=== PATIENT | female | born 1940 | race Caucasian/White ===

== ENCOUNTER → 2024-06-18 12:38 | Outpatient (REF) | payer MEDICARE, OTHER, SELFPAY | LOC: RAD 12:38 | PROVIDERS: ATTENDING PHYSICIAN Internal Medicine Rheumatology; FAMILY PHYSICIAN Family Medicine | DX: M81.0 Age-related osteoporosis without current pathological fracture (principal) | CPT/HCPCS: 77080 ==

== ENCOUNTER 2025-05-04 11:07 | Emergency (ER) | payer MEDICARE, OTHER, SELFPAY ==
[2025-05-04 11:12] VITALS: BP 136/76; BMI 20.5
[2025-05-04 12:23] LABS: Hematocrit 39.1 % (37.0-47.0); Hemoglobin 13.3 g/dL (12.0-16.0); Mean Corp Hgb Conc. 34.0 g/dL (33.0-37.0); Mean Corpuscular Volume 93.3 fL (81.0-99.0); Nucleated Red Blood Cells % 0 %; Platelet Count 262 10^3/uL (130-400); Red Cell Dist. Width 13.2 % (11.5-14.5)
[2025-05-04 12:41] LABS: Urine Character Clear (Clear)
[2025-05-04 12:47] LABS: ALT (SGPT) 13 U/L (0-35); AST (SGOT) 21 U/L (14-36); Albumin 3.9 g/dl (3.5-5.0); Alkaline Phosphatase 75 U/L (38-126); Blood Urea Nitrogen 9 mg/dl (7-17); Calcium 9.9 mg/dl (8.4-10.2); Carbon Dioxide 25 mmol/L (22-30); Chloride 106 mmol/L (98-107); Estimated Creatinine Clearance 42 ml/min; Glucose 98 mg/dl (70-99); Potassium 4.3 mmol/L (3.5-5.1); Sodium 138 mmol/L (135-145); Total Protein 6.6 g/dl (6.3-8.2); eGFR > 60.00
--- NOTE | 2025-05-04 14:41 | ED.GENMED ---
History of Present Illness
General
Chief Complaint: Abdominal Pain
Source: patient
Exam Limitations: none
Time Seen by Provider: 05/04/25 13:14
Nursing documentation reviewed up to this point in time: agreed with
History of Present Illness
History of Present Illness:
see MDM
Past History
Past History
ED Past Medical History: Other (Rheumatoid arthritis, IBS, osteoporosis, ovarian cyst)
ED Past Surgical History: Cholecystectomy and Tonsilectomy
Social History
Tobacco: Non-smoker
Alcohol: None
Drug: None
Personal:
Living: with family
Employment: Retired
Family History
Family History: Other (noncontributory)
Review of Systems
Review of Systems
Allergies reviewed?: Yes
All Other Systems: Not applicable
Phy Exam
Physical Exam
Physical Exam:
GENERAL: Alert , in no apparent distress
EYE: pupils equal and reactive
NECK: Supple
ENT: o/p clr, mmm.
CARDIAC: Regular rate and rhythm .
LUNGS: Clear breath sounds bilaterally, no acute respiratory distress, no wheezes/rales/rhonchi
ABDOMEN: Soft, mild lower abd tenderness, no r/g, no cvat, normal bowel sounds
NEUROLOGICAL: Alert and oriented, no focal neuro deficits
SKIN: Warm and dry, abrasion with eschar LLE
mild swelling to LLE
MUSCULOSKELETAL: mild swelling LLE
PSYCH: Normal and appropriate interaction.
Course
Orders/Labs/Results
Orders:
Orders
05/04/25 12:04
Complete Blood Count/With Diff Urgent
Comprehensive Metabolic Panel Urgent
Urinalysis Reflex To Culture Urgent
Date Specimen was Collected: 05/04/25
Time Specimen was Collected: 12:04
Urine Microscopic Reflex Cult Urgent
Urine Culture Urgent
REBEKAH Source: U
Specimen Description:
Date Specimen was Collected: 05/04/25
Time Specimen was Collected: 12:04
05/04/25 13:29
CT Abd/Pel (IV only)-DH only Urgent
Comment:
Reason For Exam: lower abd pain, uti
05/04/25 15:00
Venous Doppler Lwr Ext Left [US Periph Venous LOWER Ext LT] Urgent
Comment:
Reason For Exam: left leg swelling
05/04/25 17:14
Cefdinir [Omnicef] 300 mg PO NOW STA
Abnormal Lab Results
05/04/25
12:04
RBC 4.19 L 10^6/uL
(4.20-5.40)
MCH 31.7 H pg
(27.0-31.0)
Abs Immat Gran (auto) 0.1 H 10^3/uL
(0-0.05)
Absolute Neuts (auto) 8.5 H 10^3/uL
(1.4-6.5)
Absolute Lymphs (auto) 0.8 L 10^3/uL
(1.2-3.4)
Absolute Monos (auto) 0.8 H 10^3/uL
(0.1-0.6)
Immature Gran % 0.6 H %
(0-0.5)
Neutrophils % 82.5 H %
(42.2-75.2)
Lymphocytes % 8.0 L %
(20.5-51.1)
Ur Occult Blood Reflex 1+ A
(Negative)
Leukocyte Esterase Rfl 2+ A
(Negative)
Urine RBC 3-6 A /HPF
(0-2)
Urine Albumin (Reflex) 1+ A
(Neg - Trace)
05/04/25 12:04
05/04/25 12:04
Vital Signs
Initial and Last Documented VS:
Initial Vital Signs
Temp Pulse Resp BP Pulse Ox
36.6 C 84 18 136/76 96
05/04/25 11:12 05/04/25 11:12 05/04/25 11:12 05/04/25 11:12 05/04/25 11:12
Last Documented Vital Signs
Temp Pulse Resp BP Pulse Ox
36.6 C 74 18 138/89 95
05/04/25 11:12 05/04/25 17:09 05/04/25 17:09 05/04/25 17:09 05/04/25 17:09
MDM/Problems Addressed
MDM/Problems Addressed:
Note:
CHIEF COMPLAINT(S)
Lower back pain radiating to lower abdomen, frequent urination, and wound care.
HISTORY OF PRESENT ILLNESS
pt is a 84 y/o F h/o mild dementia
sent from [place] for lower abd pain. pt cannot really recall when this started, initially saying that it started today but i called the RN from [facility] who was able to tell me she has chronic pain in her back but that the lower abd pain has
been there for several months
they wanted to send her for testing but pt would always refuse.
she also had a fall a few weeks ago and has complained more recnetly that her L hip was bothering her so they want her checked for a fracture. but i confirmed that the fall was at [facility] 2-3 weeks ago and not today
she is at her baseline, has some memory issues and gets pretty anxious/overwhlemed being here.
pt reports urinary urgency and frequency today
no dysuria There is no associated fever, vomiting, or diarrhea.
she does have h/o UTI
PAST MEDICAL AND SURGICAL HISTORY
The patient has a wound secondary to a fall occurring weeks ago, for which she has been receiving treatment.
EXTERNAL RECORDS REVIEWED
The patient mentioned that records pertaining to the fall and subsequent treatment are available at the facility where she is receiving wound care.
PHYSICAL EXAM
- Assessment of the left leg wound, with plans to re-dress using the same material.
- No signs of fever or vomiting observed during the encounter.
- Nursing notes reviewed and vital signs reviewed.
PROBLEM LIST
- Acute: Lower back pain with radiation to the abdomen, urinary urgency, wound care.
- Chronic: None mentioned.
PLAN
Further investigation including a scan of the abdomen due to the described abdominal pain and tenderness. The patient should refrain from eating until diagnostic results are reviewed. Additional tests are pending to assess for potential infection.
The leg wound will be re-dressed following outcomes of the urine and abdominal evaluations.
DIFFERENTIAL DIAGNOSIS
The Differential Diagnosis includes, in no particular order and is not limited to:
1. Urinary tract infection
2. Kidney stones
3. Pyelonephritis
4. Musculoskeletal back pain
5. Abdominal aortic aneurysm
6. Diverticulitis
7. Bladder infection
8. Appendicitis
9. Ovarian cyst
10. Pelvic inflammatory disease
CARE-UPDATE
05/04/25 - 17:04
pt presents with intermittent chronic (months) lower abd complaints and someitmes pain down L leg/hip region causing her pain with walking
she has refused eval in the past
she has some dementia and gets agitated with questionning
on exam she is nontender, moving the hips and back normally, literally did a dancing jig to the bathroom
neg straight leg raise
normal sensation
she has some suprapubic tendneress and reports of urinary frequency
her ua is mildly positive, with white blood cells, leukocytes, and a little blood in urine. Additionally, she was found to have a stable left ovarian cyst and a small Bakers cyst behind the knee. The patient has been experiencing abdominal pain
that extends into her leg, heightened since a fall on the fifth, though a CT scan showed no fractures. The belly showed moderate stool in the colon. Swelling in the leg is likely reactive to a healing wound, and the venous insufficiency is suspected
to contribute. The plan is to treat the urinary symptoms with Macrobid (nitrofurantoin) twice a day while monitoring for any side effects. Pain management to include Tylenol and consideration for gabapentin for nerve pain. Further imaging such as
MRI may be suggested for more detailed assessment of potential nerve issues. Discussed the possibility of physical therapy assessment and intervention. Patient or family should contact if symptoms persist or worsen.
*Pulse Oximetry
SaO2: 96
Oxygen Mode of Delivery: Room air
Patient hypoxic: no (95)
*Critical Care Note
Total Time (30-74mins, 75-104mins- exclusive of procedures): Not Applicable
ED Attending Note
-
Portions of this chart may have been created with voice recognition software.� Occasional wrong word or��sound alike� substitutions may have occurred due to the inherent limitations of voice recognition software.
Discharge Plan
Departure
Patient Disposition: Detention/SNF
Date of Disposition: 05/04/25
Time of Disposition: 17:06
Patient with high blood pressure during this ER visit?: No
Condition: Fair
Covid-19: Not Applicable
Discharge Problem:
UTI (urinary tract infection), Chronic hip pain
Instructions: Urinary tract infection in adults - ED (DC), Hip pain - ED (DC)
Prescriptions:
New
nitrofurantoin monohyd/m-cryst [Macrobid] 100 mg capsule
100 mg PO Q12H 7 Days Qty: 14 0RF
cefdinir 300 mg capsule
300 mg PO BID Qty: 10 0RF
No Action
levothyroxine 50 MCG tablet
50 mcg PO DAILY@0600
polyvinyl alcohol [Artificial Tears (polyvin alc)] 1.4 % Drops
1 drp BOTH EYES BID@0900,1700
acetaminophen 500 mg Tablet
1,000 mg PO Q8HPRN PRN (Reason: mild pain)
magnesium hydroxide [Milk of Magnesia] 400 mg/5 mL Suspension
30 ml PO DAILYPRN PRN (Reason: if no bm x 2 days)
polyethylene glycol 3350 [Miralax] 17 gram powder in packet
17 g PO DAILYPRN PRN (Reason: constipation)
cetirizine 10 mg Tablet
10 mg PO DAILY
vitamin A and D Ointment
1 applic TOPICAL DAILY@0800
Rx Instructions:
apply to rle
Aquaphor Ointment
1 applic TOPICAL DAILY@0800
Rx Instructions:
apply to legs
ibuprofen 400 mg Tablet
400 mg PO Q6H PRN (Reason: mild pain)
Anti-Itch (menthol-camphor) 0.5-0.5 % Lotion
1 applic TOPICAL DAILY
Rx Instructions:
apply to rle
Saccharomyces boulardii [Florastor] 250 mg Capsule
250 mg PO BID
cholecalciferol (vitamin D3) 50 mcg (2,000 unit) Tablet
50 mcg PO DAILY
methylprednisolone [Medrol] 4 mg tablet
2 mg PO DAILY
Rx Instructions:
Start taking after off of Prednisone.
Referrals:
Dhruv Perez MD [Family Provider, Family Practice] - Follow up in 2-3 days
Activity Restrictions/Additional Instructions:
Your CAT scan did not show any significant causes for your pain, you do have an ovarian cyst which is stable in size measuring 6 cm and you have moderate amount of stool in your colon. If you easily get constipated try dose of MiraLAX for 1 or 2
days in a row.
You have a urine infection. Take cefdinir twice a day for 5 days.
We will call you if we have to switch the antibiotic.
Try Tylenol 3 times a day, add a lidocaine patch to your hip leave on for 12 hours, remove for 12 hours
Your ultrasound showed no blood clot in your leg.
You may benefit from physical therapy evaluation.
return for any concerns: fever, vomiting, diarrhea, severe pain, inability to walk, or any concerns.
Interventions
Interventions:
*Risk Screen - Suicide Last Done: 05/04/25 11:12
*General Assessment Last Done: 05/04/25 11:12
*Neglect/Abuse Screening Last Done: 05/04/25 11:12
*Nursing Disposition Last Done: 05/04/25 17:35
TP-Vhoqvo-Caakrtonbe Assessment Last Done: 05/04/25 11:47
Discharge Date and Time
Discharge Date/Time: 05/04/25 17:37
Print Language: KHMER
[2025-05-04 15:36] VITALS: BP 125/57
[2025-05-04 17:09] VITALS: BP 138/89
[2025-05-04] MEDS: OMNICEF 300 MG PO (17:28)
== END 2025-05-04 17:37 ==
LOC: EMR 11:07
PROVIDERS: EMERGENCY PHYSICIAN Emergency Medicine; FAMILY PHYSICIAN Family Medicine
DX: N39.0 Urinary tract infection, site not specified (principal); G89.29 Other chronic pain; R22.42 Localized swelling, mass and lump, left lower limb; M06.9 Rheumatoid arthritis, unspecified; M81.0 Age-related osteoporosis without current pathological fracture; Z90.49 Acquired absence of other specified parts of digestive tract
CPT/HCPCS: 99284; 74177; 80053; 81003; 81015; 85025; 87086; 93971; Q9967

== ENCOUNTER 2025-06-29 21:45 | Inpatient (IN) | payer MEDICARE, OTHER, SELFPAY ==
[2025-06-29] VITALS (7 sets, daily range): BP systolic 116–140; BP diastolic 54–94
--- NOTE | 2025-06-29 18:29 | ED.GENMED ---
History of Present Illness
<Alberto Rocha Jr., PA-C - Last Filed: 06/29/25 19:53>
General
Chief Complaint: Urinary Symptoms
Source: patient
Exam Limitations: none
Time Seen by Provider: 06/29/25 18:18
Nursing documentation reviewed up to this point in time: agreed with
History of Present Illness
History of Present Illness:
The patient is an 84-year-old female past medical history of IBS, memory loss presenting to the emergency department today with concerns of worsening symptoms related to recently diagnosed UTI over the past 4 days or so. Has been on Macrobid
without relief.
Past History
<Alberto Rocha Jr., PA-C - Last Filed: 06/29/25 19:53>
Past History
ED Past Medical History: Other (Rheumatoid arthritis, IBS, osteoporosis, ovarian cyst)
ED Past Surgical History: Cholecystectomy and Tonsilectomy
Social History
Tobacco: Non-smoker
Alcohol: None
Drug: None
Personal:
Living: with family
Employment: Retired
Family History
Family History: Other (noncontributory)
Review of Systems
<Alberto Rocha Jr., PA-C - Last Filed: 06/29/25 19:53>
Review of Systems
Allergies reviewed?: Yes
All Other Systems: ROS reviewed and negative except as documented in HPI and ROS
Phy Exam
<Alberto Rocha Jr., PA-C - Last Filed: 06/29/25 19:53>
Physical Exam
Physical Exam:
GENERAL: Alert , in no apparent distress
EYE: pupils equal and reactive
NECK: Supple, no significant adenopathy.
ENT: o/p clr, mmm.
CARDIAC: Regular rate and rhythm .
LUNGS: Clear breath sounds bilaterally, no acute respiratory distress, no wheezes/rales/rhonchi
ABDOMEN: Soft, without focal tenderness, no r/g, no cvat
NEUROLOGICAL: Alert and oriented, no focal neuro deficits
SKIN: Warm and dry, skin intact.
MUSCULOSKELETAL: No edema, well perfused.
PSYCH: Normal and appropriate interaction.
Course
<Alberto Rocha Jr., BRIEN-Sarah - Last Filed: 06/29/25 19:53>
Orders/Labs/Results
Orders:
Orders
06/29/25 18:51
Basic Metabolic Panel Urgent
CBC/With Diff [Complete Blood Count/With Diff] Urgent
Lactic Acid Urgent
Urinalysis Reflex To Culture Urgent
Date Specimen was Collected: 06/29/25
Time Specimen was Collected: 18:39
Urine Microscopic Reflex Cult Urgent
Urine Culture Urgent
REBEKAH Source: U
Specimen Description:
Date Specimen was Collected: 06/29/25
Time Specimen was Collected: 18:39
06/29/25 19:49
CefTRIAXone [Rocephin] 1,000 mg IV NOW STA
Abnormal Lab Results
06/29/25
18:51
WBC 12.5 H 10^3/uL
(4.8-10.8)
RBC 4.10 L 10^6/uL
(4.20-5.40)
Abs Immat Gran (auto) 0.1 H 10^3/uL
(0-0.05)
Absolute Neuts (auto) 10.6 H 10^3/uL
(1.4-6.5)
Absolute Lymphs (auto) 0.7 L 10^3/uL
(1.2-3.4)
Absolute Monos (auto) 1.0 H 10^3/uL
(0.1-0.6)
Immature Gran % 0.6 H %
(0-0.5)
Neutrophils % 85.2 H %
(42.2-75.2)
Lymphocytes % 5.3 L %
(20.5-51.1)
Carbon Dioxide 18 L mmol/L
(22-30)
BUN 25 H mg/dl
(7-17)
Glucose 102 H mg/dl
(70-99)
Urine Ketones 3+ A
(Negative)
Ur Occult Blood Reflex 4+ A
(Negative)
Urine Nitrite (Reflex) Positive A
(Negative)
Leukocyte Esterase Rfl 3+ A
(Negative)
Urine WBC (Reflex) >100 A /HPF
(0-5)
Urine Albumin (Reflex) 4+ A
(Neg - Trace)
06/29/25 18:51
06/29/25 18:51
Vital Signs
Initial and Last Documented VS:
Initial Vital Signs
Temp Pulse Resp BP Pulse Ox
98.0 F 88 20 135/74 94
06/29/25 18:19 06/29/25 18:19 06/29/25 18:19 06/29/25 18:19 06/29/25 18:19
Last Documented Vital Signs
Temp Pulse Resp BP Pulse Ox
98.0 F 88 20 135/74 94
06/29/25 18:19 06/29/25 18:19 06/29/25 18:19 06/29/25 18:19 06/29/25 18:19
<Estevan Butler, DO - Last Filed: 06/29/25 19:52>
Orders/Labs/Results
Orders:
Orders
06/29/25 18:51
Basic Metabolic Panel Urgent
CBC/With Diff [Complete Blood Count/With Diff] Urgent
Lactic Acid Urgent
Urinalysis Reflex To Culture Urgent
Date Specimen was Collected: 06/29/25
Time Specimen was Collected: 18:39
Urine Microscopic Reflex Cult Urgent
Urine Culture Urgent
REBEKAH Source: U
Specimen Description:
Date Specimen was Collected: 06/29/25
Time Specimen was Collected: 18:39
06/29/25 19:49
CefTRIAXone [Rocephin] 1,000 mg IV NOW STA
Abnormal Lab Results
06/29/25
18:51
WBC 12.5 H 10^3/uL
(4.8-10.8)
RBC 4.10 L 10^6/uL
(4.20-5.40)
Abs Immat Gran (auto) 0.1 H 10^3/uL
(0-0.05)
Absolute Neuts (auto) 10.6 H 10^3/uL
(1.4-6.5)
Absolute Lymphs (auto) 0.7 L 10^3/uL
(1.2-3.4)
Absolute Monos (auto) 1.0 H 10^3/uL
(0.1-0.6)
Immature Gran % 0.6 H %
(0-0.5)
Neutrophils % 85.2 H %
(42.2-75.2)
Lymphocytes % 5.3 L %
(20.5-51.1)
Carbon Dioxide 18 L mmol/L
(22-30)
BUN 25 H mg/dl
(7-17)
Glucose 102 H mg/dl
(70-99)
Urine Ketones 3+ A
(Negative)
Ur Occult Blood Reflex 4+ A
(Negative)
Urine Nitrite (Reflex) Positive A
(Negative)
Leukocyte Esterase Rfl 3+ A
(Negative)
Urine WBC (Reflex) >100 A /HPF
(0-5)
Urine Albumin (Reflex) 4+ A
(Neg - Trace)
06/29/25 18:51
06/29/25 18:51
Vital Signs
Initial and Last Documented VS:
Initial Vital Signs
Temp Pulse Resp BP Pulse Ox
98.0 F 88 20 135/74 94
06/29/25 18:19 06/29/25 18:19 06/29/25 18:19 06/29/25 18:19 06/29/25 18:19
Last Documented Vital Signs
Temp Pulse Resp BP Pulse Ox
98.0 F 88 20 135/74 94
06/29/25 18:19 06/29/25 18:19 06/29/25 18:19 06/29/25 18:19 06/29/25 18:19
<Alberto Rocha Jr., PA-C - Last Filed: 06/29/25 19:53>
MDM/Problems Addressed
MDM/Problems Addressed:
84-year-old female presenting with concerns of ongoing urinary symptoms that were not improving over the last few days while taking Macrobid for apparent UTI. Here vital signs are normal patient no obvious distress but is somewhat confused. Family
confirming this is worsened from baseline. White count 12.5 normal lactic acid elevated BUN to creatinine ratio. She was started on fluids also started on ceftriaxone as urine appears consistent with urinary tract infection. Plan to admit
considering failed outpatient management as well as altered mental status in association with acute urinary tract infection.
<Alberto Rocha Jr., PA-C - Last Filed: 06/29/25 19:53>
*Pulse Oximetry
Patient hypoxic: no (94)
*Critical Care Note
Total Time (30-74mins, 75-104mins- exclusive of procedures): Not Applicable
ED Attending Note
<Alberto Rocha Jr., PA-C - Last Filed: 06/29/25 19:53>
-
Portions of this chart may have been created with voice recognition software.� Occasional wrong word or��sound alike� substitutions may have occurred due to the inherent limitations of voice recognition software.
<Estevan Butler DO - Last Filed: 06/29/25 19:52>
ED Attending Note
Patient seen and examined by attending physician: Yes
ED Attending Note:
I have reviewed and agree with history treatment plan by Gus Rocha PA-C. My exam revealed 84-year-old female with mild confusion otherwise no acute distress. Patient failing outpatient treatment for UTI that is likely causing some of her symptoms
such as confusion. Treat with Rocephin admit to hospitalist.
Discharge Plan
Departure
Patient Disposition: Admit
Date of Disposition: 06/29/25
Time of Disposition: 19:53
Admit to: Med/Surg
Admit to doctor: Adriano
Presentation/result/management discussed w/ accepting MD/DO: Hospitalist
Patient with high blood pressure during this ER visit?: No
Condition: Good
Covid-19: Not Applicable
Discharge Problem:
Acute UTI
Prescriptions:
No Action
levothyroxine 50 MCG tablet
50 mcg PO DAILY@0600
polyvinyl alcohol [Artificial Tears (polyvin alc)] 1.4 % Drops
1 drp BOTH EYES BID@0900,1700
acetaminophen 500 mg Tablet
1,000 mg PO Q8HPRN PRN (Reason: mild pain)
magnesium hydroxide [Milk of Magnesia] 400 mg/5 mL Suspension
30 ml PO DAILYPRN PRN (Reason: if no bm x 2 days)
polyethylene glycol 3350 [Miralax] 17 gram powder in packet
17 g PO DAILYPRN PRN (Reason: constipation)
cetirizine 10 mg Tablet
10 mg PO DAILY
Aquaphor Ointment
1 applic TOPICAL DAILY@0800
Rx Instructions:
apply to legs
ibuprofen 400 mg Tablet
400 mg PO Q6H PRN (Reason: mild pain)
Saccharomyces boulardii [Florastor] 250 mg Capsule
250 mg PO BID
cholecalciferol (vitamin D3) 50 mcg (2,000 unit) Tablet
50 mcg PO DAILY
methylprednisolone [Medrol] 4 mg tablet
2 mg PO DAILY
fluconazole 200 mg tablet
200 mg PO DAILY
Rx Instructions:
beginning 06/28/25 and ending 07/01/25
nitrofurantoin monohyd/m-cryst [Macrobid] 100 mg capsule
100 mg PO Q6H
Rx Instructions:
Beginning 06/27/25 and ending 07/02/25, give @0000,0600,1200,1700
Referrals:
UNKNOWN - PT DOES,NOT KNOW [Family Provider]
Interventions
Interventions:
*Risk Screen - Suicide Last Done: 06/29/25 18:19
*General Assessment Last Done: 06/29/25 18:19
*Neglect/Abuse Screening Last Done: 06/29/25 18:19
*ED COVID-19 Vaccine History Last Done: 06/29/25 18:19
*ED Influenza Vaccine History Last Done: 06/29/25 18:19
Discharge Date and Time
Print Language: MALAYSIAN
[2025-06-29 18:58] LABS: Hematocrit 37.7 % (37.0-47.0); Hemoglobin 12.7 g/dL (12.0-16.0); Mean Corp Hgb Conc. 33.7 g/dL (33.0-37.0); Mean Corpuscular Volume 92.0 fL (81.0-99.0); Nucleated Red Blood Cells % 0 %; Platelet Count 290 10^3/uL (130-400); Red Cell Dist. Width 13.2 % (11.5-14.5); Urine Character Cloudy (Clear)
[2025-06-29 19:19] LABS: Blood Urea Nitrogen 25 mg/dl (7-17); Calcium 9.4 mg/dl (8.4-10.2); Carbon Dioxide 18 mmol/L (22-30); Chloride 107 mmol/L (98-107); Glucose 102 mg/dl (70-99); Sodium 138 mmol/L (135-145); eGFR > 60.00
[2025-06-29 19:20] LABS: Urine White Cell >100 /HPF (0-5)
[2025-06-29] MEDS: ROCEPHIN 1000 MG IV (20:38)
[2025-06-29] MEDS: NSS 500 IV (20:38)
--- NOTE | 2025-06-29 20:43 | HPS.HSE ---
Family Physician
-
Family Physician: NOT KNOW UNKNOWN - PT DOES
Chief Complaint
-
Confusion, Dysuria
History of Present Illness
Patient is an 84y F with PMH significant for IBS, recurrent UTI and dementia who presents to ED for evaluation of recent urinary symptoms and increased confusion. History obtained from patient and family at the bedside. Patient started with
dysuria and frequency on Tuesday of this week. On she was started on Macrobid for suspected UTI (apparently no sample was able to be obtained). She was placed on Macrobid 100mg q6 as well as fluconazole 200mg daily. Patient has noted no
improvement in her urinary complaints. In addition, family states that she is more confused and weaker than her usual baseline. She has had poor appetite and is unsteady on her feet, prompting them to present to the ED this evening for evaluation.
Medical History
Past Medical History
Past Medical History: Reports Other
Additional Past Medical History:
Rheumatoid Arthritis
Osteoporosis
IBS-C
Chronic Cystitis / Recurrent UTI
Senile Dementia
Hypothyroidism
Past Surgical History: Reports Other
Additional Past Surgical History:
Cholecystectomy
T&A
Right Wrist Arthroplasty
Bilateral Hand Surgeries
Social History
Tobacco: Non-smoker
Alcohol: None
Drug: None
Living: Assisted Living
Family History
Family History: Not pertinent
Allergies / Home Medications
Allergies reflects when Allergies were last updated in [facility].
Home Medications with original date entered in [facility]
Allergy/Medication List:
Allergies
Allergy/AdvReac Type Severity Reaction Status Date / Time
aspirin Allergy Unknown Unknown Verified 06/29/25 18:18
ciprofloxacin (From Cipro) Allergy Unknown Unknown Verified 06/29/25 18:18
ciprofloxacin HCl (From Allergy Unknown Unknown Verified 06/29/25 18:18
Cipro)
codeine Allergy Unknown Verified 06/29/25 18:18
meperidine Allergy Unknown Verified 06/29/25 18:18
NSAIDS (Non-Steroidal Allergy Unknown Verified 06/29/25 18:18
Anti-Inflamma
Salicylates * Allergy Unknown Verified 06/29/25 18:18
Home Medications
levothyroxine 50 mcg tablet 50 mcg PO DAILY@0600 Thyroid 05/24/14
acetaminophen 500 mg tablet 1,000 mg PO Q8HPRN PRN mild pain 07/16/23
magnesium hydroxide 400 mg/5 mL oral suspension (Milk of Magnesia) 30 ml PO DAILYPRN PRN if no bm x 2 days 07/16/23
polyethylene glycol 3350 17 gram oral powder packet (Miralax) 17 g PO DAILYPRN PRN constipation 07/16/23
polyvinyl alcohol 1.4 % eye drops (Artificial Tears (polyvinyl alcohol)) 1 drp BOTH EYES BID@0900,1700 07/16/23
Saccharomyces boulardii 250 mg capsule (Florastor) 250 mg PO BID 05/04/25
cetirizine 10 mg tablet 10 mg PO DAILY 05/04/25
cholecalciferol (vitamin D3) 50 mcg (2,000 unit) tablet 50 mcg PO DAILY 05/04/25
ibuprofen 400 mg tablet 400 mg PO Q6H PRN mild pain 05/04/25
methylprednisolone 4 mg tablet (Medrol) 2 mg PO DAILY 05/04/25
mineral oil-hydrophil petrolat topical ointment 1 applic topical DAILY@0800 05/04/25
fluconazole 200 mg tablet 200 mg PO DAILY 06/29/25
nitrofurantoin monohydrate/macrocrystals 100 mg capsule (Macrobid) 100 mg PO Q6H 06/29/25
Review of Systems
-
History Source: Patient and Family
A 12 point ROS was completed and negative except as noted: Yes
Constitutional: Reports Fatigue; Denies Fever or Chills
Respiratory: Denies Cough or Trouble Breathing
Cardiac: Denies Chest Pain or Palpitations
Abdomen/GI: Reports Diarrhea, Constipated and Anorexia; Denies Abdominal Pain, Nausea, Vomiting, Bloody Stools or Black Stools
: Reports Dysuria, Frequency and Urgency; Denies Flank Pain
Musculoskeletal: Denies Joint Pain or Edema
Skin: Reports Rash
Neurological: Reports Weakness; Denies Dizzy or Headache
Psych: Reports Dementia; Denies Depression or Anxiety
Physical Exam
Vital Signs
Vital Signs
Temp Pulse Resp BP Pulse Ox
98.0 F 70 22 120/76 96
06/29/25 18:19 06/29/25 20:15 06/29/25 20:15 06/29/25 20:00 06/29/25 19:45
Physical Exam
General: Other (84y F in no acute distress.)
HEENT: Other (Dry MM. Neck supple.)
Respiratory: Clear; No Wheezes, Rales or Rhonchi
Cardiac: S1/S2 and Regular Rhythm; No Murmur
GI: Soft, Non Distended, Normal Bowel Sounds and Other (Mild, diffuse tenderness. No rebound / guarding.)
Musculoskeletal: No Clubbing, No Cyanosis and No Edema
Skin: Other (Erythematous, lacy rash over dorsum of R foot.)
Neuro: Awake, Alert and Nonfocal/grossly intact
Psych: Apparent Dementia
Laboratory Results
-
06/29/25 18:51
06/29/25 18:51
Laboratory Results
Lactic Acid 1.9 mmol/L (0.7-2.0) 06/29/25 18:51
Total Bilirubin Cancelled 06/29/25 18:51
AST Cancelled 06/29/25 18:51
ALT Cancelled 06/29/25 18:51
Alkaline Phosphatase Cancelled 06/29/25 18:51
Impression/Plan
-
A/P: Patient is an 84y F with PMH significant for senile dementia, IBS and hypothyroidism who presents to ED for evaluation of urinary symptoms and confusion despite OP antibiotic treatment.
UTI - Failed outpatient therapy
- Admit for further evaluation and treatment.
- IV ceftriaxone for now pending culture data.
- Supportive care including IVFs.
- Follow for clinical improvement.
IBS-C
- Chronic constipation with 'diarrhea' episodes which likely reflect leakage around constipation.
- Bowel regimen including daily Miralax
- Follow for improvement.
Non-Gapped Metabolic Acidosis
- ? etiology. IVFs overnight and follow labs for improvement.
- Dietary / nutrition evaluation.
Hypothyroidism
- Continue current T4 supplementation.
- Update TFTs.
Severe Protein - Calorie Malnutrition
- Dietary evaluation as noted above.
Rheumatoid Arthritis
- No current complaints of joint pain.
- Continue methylprednisolone without changes.
Senile Dementia
- Increased confusion recently.
- ? progression of baseline disease.
DVT Prophylaxis: Subcut heparin
Code Status: DNR
[2025-06-30] VITALS (7 sets, daily range): BP systolic 120–129; BP diastolic 52–77; BMI 15.5; BMI 15.4
[2025-06-30] MEDS: NSS 1000 IV ×2 (00:48→08:16)
[2025-06-30] MEDS: SENOKOT PO (00:51)
[2025-06-30 06:42] LABS: Hematocrit 36.7 % (37.0-47.0); Hemoglobin 12.2 g/dL (12.0-16.0); Mean Corp Hgb Conc. 33.2 g/dL (33.0-37.0); Mean Corpuscular Volume 93.6 fL (81.0-99.0); Platelet Count 261 10^3/uL (130-400); Red Cell Dist. Width 13.2 % (11.5-14.5)
[2025-06-30 07:14] LABS: Blood Urea Nitrogen 22 mg/dl (7-17); Calcium 8.7 mg/dl (8.4-10.2); Carbon Dioxide 16 mmol/L (22-30); Chloride 112 mmol/L (98-107); Glucose 62 mg/dl (70-99); Potassium 3.5 mmol/L (3.5-5.1); Sodium 138 mmol/L (135-145); eGFR > 60.00
[2025-06-30] MEDS: MIRALAX PO (08:23)
--- NOTE | 2025-06-30 09:08 | W.PN.HOSP.TC ---
Today's Communication/Plan
-
Wound care
f/w urine & blood cultures
Assessment / Plan
Assessment / Plan
Physical Exam
General: Other (84y F in no acute distress.)
HEENT: Other (Dry MM. Neck supple.)
Respiratory: Clear; No Wheezes, Rales or Rhonchi
Cardiac: S1/S2 and Regular Rhythm; No Murmur
GI: Soft, Non Distended, Normal Bowel Sounds and Other (Mild, diffuse tenderness. No rebound / guarding.)
Musculoskeletal: No Clubbing, No Cyanosis and No Edema
Skin: Other (Erythematous, lacy rash over dorsum of R foot.)
Neuro: Awake, Alert and Nonfocal/grossly intact
Psych: Apparent Dementia
A/P:
Patient is an 84y F with PMH significant for senile dementia, IBS and hypothyroidism who presents to ED for evaluation of urinary symptoms and confusion despite OP antibiotic treatment.
UTI - Failed outpatient therapy
She is not septic or toxic looking
Normal renal function
Added blood culture
Monitor temperature curve with ital signs and WBC
- IV ceftriaxone for now pending culture data.
- Supportive care including IVFs. Can stop IVF
- Added bladder scan protocol.
IBS-C
- Chronic constipation with 'diarrhea' episodes which likely reflect leakage around constipation.
- Bowel regimen including daily MiraLAX
- No abdominal pain. exam is normal abdomen.
Non-Gapped Metabolic Acidosis. Normal K
No persistent diarrhea although hx of episodes of diarrhea.
Monitor metabolic panel
- Dietary / nutrition evaluation.
#Hypothyroidism
- Continue current T4 supplementation.
Normal T4
History of Severe Protein - Calorie Malnutrition
- Dietary evaluation as noted above.
Rheumatoid Arthritis
- No current complaints of joint pain.
- Continue methylprednisolone without changes.
Senile Dementia
Possible mild TME from UTI She is following commands , pleasant
DVT Prophylaxis: Subcut heparin
Code Status: DNR
Total time spent to see the patient, examine the patient, review data and lab result, discuss treatment plan with patient, daughter, nursing staff around 55 minutes
Anticipated Discharge: 24 - 48 hours
Subjective/Interval History
-
Date of Service: June 30, 2025
Patient is unable to hold full conversation but does not seen in distress
Her daughter is sitting at bed side
Objective Data
-
Labs:
Laboratory Results
06/30/25
06:24
WBC 12.3 H
Hgb 12.2
Hct 36.7 L
Plt Count 261
Sodium 138
Potassium 3.5
Chloride 112 H
Carbon Dioxide 16 L
BUN 22 H
Creatinine 0.7
Glucose 62 L
Calcium 8.7
Vital Signs:
Vital Signs
Temp Pulse Resp BP Pulse Ox
97.4 F 72 20 125/77 95
06/30/25 08:12 06/30/25 08:12 06/30/25 08:12 06/30/25 08:12 06/30/25 08:12
I&O
06/29/25 06/30/25 07/01/25
06:59 06:59 06:59
Intake Total 100 / 100
Output Total 100 / 100
Balance 0 / 0
[2025-06-30] MEDS: REFRESH EYE DROPS (PF) 1 DROPS BOTH EYES ×2 (09:18→18:02)
[2025-06-30] MEDS: MEDROL 2 MG PO (09:18)
[2025-06-30] MEDS: FLORASTOR 250 MG PO ×2 (09:18→20:36)
[2025-06-30] MEDS: ZYRTEC 10 MG PO (09:18)
[2025-06-30] MEDS: SYNTHROID PO (09:19)
[2025-06-30] MEDS: HEPARIN 5000 UNITS SC ×2 (09:22→20:35)
--- NOTE | 2025-06-30 09:33 | EDCM ---
CM received consult, reviewed chart, attempted to meet with pt at bedside but she was using the bathroom, I spoke to her daughter Shima.
Pt resides in [place] apartment at the [facility].
Needs assistance with ADLs and personal care, ambulates with RW, having increasing weakness and confusion.
Confirms prescription coverage.
HX VN unsure of agency, daughter also mentioned home palliative care nurse
No hx SNF
PCP: Dhruv Perez
Pharmacy: [facility] supplies medications
Discussed with daughter pt needs to be seen by PT/OT, waiting for their recommendations to plan discharge.
CM will continue to follow for all discharge planning needs.
--- NOTE | 2025-06-30 11:41 | PTCARENOTE ---
Patient is pleasantly confused form residential, oob to chair with 1x assist, incontinent of bowel and bladder. I performed bladder scan around 8am, showed 288 in bladder. IVF infusing per order, vital signs stable, pt daughter keeping her company
at bedside.
RN called [facility] to send them report. RN will transport in wheelchair.
[2025-06-30] MEDS: ROCEPHIN 1000 MG IV (20:34)
[2025-06-30] MEDS: SENOKOT 17.2 MG PO (20:35)
[2025-06-30] MEDS: STERILE WATER FOR INJECTION 10 ML IV (20:35)
[2025-07-01] MEDS: SYNTHROID 50 MCG PO (06:23)
[2025-07-01 07:00] VITALS: BP 106/68
[2025-07-01 08:02] LABS: Hematocrit 35.4 % (37.0-47.0); Hemoglobin 11.7 g/dL (12.0-16.0); Mean Corp Hgb Conc. 33.1 g/dL (33.0-37.0); Mean Corpuscular Volume 93.7 fL (81.0-99.0); Platelet Count 268 10^3/uL (130-400); Red Cell Dist. Width 13.2 % (11.5-14.5)
[2025-07-01 09:04] LABS: ALT (SGPT) 31 U/L (0-35); AST (SGOT) 59 U/L (14-36); Albumin 3.4 g/dl (3.5-5.0); Alkaline Phosphatase 108 U/L (38-126); Blood Urea Nitrogen 16 mg/dl (7-17); Calcium 8.7 mg/dl (8.4-10.2); Carbon Dioxide 21 mmol/L (22-30); Chloride 112 mmol/L (98-107); Estimated Creatinine Clearance 44 ml/min; Glucose 71 mg/dl (70-99); Potassium 3.5 mmol/L (3.5-5.1); Sodium 139 mmol/L (135-145); Total Protein 6.2 g/dl (6.3-8.2); eGFR > 60.00
[2025-07-01] MEDS: ZYRTEC 10 MG PO (09:33)
[2025-07-01] MEDS: FLORASTOR 250 MG PO ×2 (09:33→22:30)
[2025-07-01] MEDS: HEPARIN 5000 UNITS SC ×2 (09:33→22:31)
[2025-07-01] MEDS: MIRALAX 17 GRAMS PO (09:33)
[2025-07-01] MEDS: REFRESH EYE DROPS (PF) 1 DROPS BOTH EYES ×2 (09:33→17:10)
[2025-07-01] MEDS: MEDROL 2 MG PO (09:43)
--- NOTE | 2025-07-01 10:25 | W.PN.HOSP.TC ---
Today's Communication/Plan
-
Pending urine culture, pending placement.
Assessment / Plan
Assessment / Plan
Impression:
Patient is an 84y F with PMH significant for senile dementia, IBS and hypothyroidism who presents to ED for evaluation of urinary symptoms and confusion despite OP antibiotic treatment.
Assessment/plan:
UTI - Failed outpatient therapy
She is not septic or toxic looking
Normal renal function
Added blood culture
Monitor temperature curve with ital signs and WBC
- IV ceftriaxone for now pending culture data.
- Supportive care including IVFs. Can stop IVF
- Added bladder scan protocol.
IBS-C
- Chronic constipation with 'diarrhea' episodes which likely reflect leakage around constipation.
- Bowel regimen including daily MiraLAX
- No abdominal pain. exam is normal abdomen.
Non-Gapped Metabolic Acidosis. Normal K
No persistent diarrhea although hx of episodes of diarrhea.
Improved
#Hypothyroidism
- Continue current T4 supplementation.
Normal T4 -TSH 0.15
Normocytic anemia
Hemoglobin stable
History of Severe Protein - Calorie Malnutrition
- Dietary evaluation as noted above.
Rheumatoid Arthritis
- No current complaints of joint pain.
- Continue methylprednisolone without changes.
Senile Dementia
Possible mild TME from UTI She is following commands , pleasant
DVT Prophylaxis: Subcut heparin
Code Status: DNR
Diet: Regular diet
Disposition: Pending urine culture, pending placement.
Total time spent on today's encounter was 55 minutes which included time spent in counseling the patient/family regarding diagnosis and treatment plan as listed above, goals of care, and symptom management. Case was discussed with nursing staff,
specialists, and care coordinators/case management. All labs and imaging personally reviewed by me. Remainder the time spent in detailed review of previous records, lab data, imaging, and other medical provider documentation.
Anticipated Discharge: Within 24 hours
Subjective/Interval History
-
Date of Service: July 01, 2025
Patient seen and examined at bedside, patient is very confused and cannot provide interval history.
Objective Data
-
Labs:
Laboratory Results
07/01/25
07:11
WBC 10.7
Hgb 11.7 L
Hct 35.4 L
Plt Count 268
Sodium 139
Potassium 3.5
Chloride 112 H
Carbon Dioxide 21 L
BUN 16
Creatinine 0.6
Glucose 71
Calcium 8.7
Total Bilirubin 0.6
AST 59 H
ALT 31
Alkaline Phosphatase 108
Vital Signs:
Vital Signs
Temp Pulse Resp BP Pulse Ox
97.6 F 75 16 106/68 95
07/01/25 07:00 07/01/25 07:00 07/01/25 07:00 07/01/25 07:00 07/01/25 07:00
I&O
06/30/25 07/01/25 07/02/25
06:59 06:59 06:59
Intake Total 100 / 100 1440 / 1440
Output Total 100 / 100
Balance 0 / 0 1440 / 1440
Physical Exam
-
General: Cachectic
HEENT: Normocephalic, Atraumatic and No Ptosis
Respiratory: Rales and Non Labored Respirations
Cardiac: Regular Rhythm and S1/S2
Breast: Deferred by me
GI: Soft, Nontender, Nondistended and Normal Bowel Sounds
Genito-urinary: No Costovertebral Tender
Musculoskeletal: No Clubbing, No Cyanosis and No Edema
Skin: Warm
Neuro: Awake
Psych: Calm and Confused
--- NOTE | 2025-07-01 13:36 | CM ---
Reviewed the chart notes and spoke with the patient's daughter at the bedside. Discussed PT recommendation of SNF. Daughter agreeable to referral being sent to [facility]. Referral sent in [facility]. CM continues to be available to
patient/family and is monitoring medical plan for needs at discharge.
Plan: Discharge to SNF/rehab once medically stable and bed secured. No precert required.
[2025-07-01 15:00] VITALS: BP 155/65
--- NOTE | 2025-07-01 16:13 | WOUNDNOTE ---
L LATERAL LOWER LEG
[2025-07-01 16:31] VITALS: BMI 15.4
--- NOTE | 2025-07-01 16:35 | WOUNDNOTE ---
WO RN note: Patient admitted with UTI.
See H&P for complete history.
PMH:Patient is an 84y F with PMH significant for IBS, recurrent UTI and dementia who presents to ED for evaluation of recent urinary symptoms and increased confusion.
Wound Location and type/assessment: Patient admitted with:L lateral lower leg healing trauma wound. Daughter at bedside confirmed she accidentally scraped leg and has been going to Dr. Iqbal's office q 2 wks for treatment. Daughter states wound
is much improved. Removed adaptic, abd and celina, daughter unsure if anything topical used. Will try and call office later to confirm wound care. Patient able to turn self, sacrum and heels intact.
Appetite: Good.
Pressure redistribution devices in place: Accumax, turns self. Placed pillow under calves.
Plan: local wound care done, will follow up with Dr. Iqbal's office in am, now closed.
Will confirm orders with hospitalist and updated nurse.
Updated care plan and will follow as needed.
Note to case management of equipment requested for discharge:
Recommend follow up with Business Line Manager upon discharge.
--- NOTE | 2025-07-01 17:05 | WOUNDNOTE ---
JASPAL RN NOTE: Updated wound care orders based on discussion with Dr. Iqbal.
[2025-07-01] MEDS: ROCEPHIN 1000 MG IV (22:30)
[2025-07-01] MEDS: STERILE WATER FOR INJECTION 10 ML IV (22:30)
[2025-07-01] MEDS: SENOKOT 17.2 MG PO (22:31)
[2025-07-01 23:24] VITALS: BP 129/87
[2025-07-02] MEDS: SYNTHROID 50 MCG PO (05:49)
[2025-07-02 07:30] VITALS: BP 125/53
[2025-07-02] MEDS: FLORASTOR 250 MG PO (08:38)
[2025-07-02] MEDS: HEPARIN 5000 UNITS SC (08:38)
[2025-07-02] MEDS: HYDROPHOR 1 APPLIC TOPICAL (08:38)
[2025-07-02] MEDS: MIRALAX 17 GRAMS PO (08:38)
[2025-07-02] MEDS: MEDROL 2 MG PO (08:38)
[2025-07-02] MEDS: REFRESH EYE DROPS (PF) 1 DROPS BOTH EYES (08:38)
[2025-07-02] MEDS: ZYRTEC 10 MG PO (08:38)
--- NOTE | 2025-07-02 10:01 | CM ---
Addendum entered by Cassia Pascual RN 07/02/25 11:38:
Patient's daughter and patient informed of transfer today at 1pm.
Original Note:
Reviewed the chart notes. IMM reviewed over phone with daughter Shima. Patient accepted at [facility]. Covid screen pending. CM continues to be available to patient/family and is monitoring medical plan for needs at discharge.
Plan: Discharge to [facility] today. No precert required.
Call report to: [phone]
Fax report to: [phone]
Medical necessity and transport forms on chart.
[2025-07-02 11:06] LABS: COVID-19 Antigen Negative (Negative)
[2025-07-02 12:27] VITALS: BP 125/68
--- NOTE | 2025-07-02 12:52 | W.PN.HOSP.TC ---
Today's Communication/Plan
-
Discharge to rehab
Assessment / Plan
Assessment / Plan
Impression:
Patient is an 84y F with PMH significant for senile dementia, IBS and hypothyroidism who presents to ED for evaluation of urinary symptoms and confusion despite OP antibiotic treatment.
Culture remains negative, completed 3 days of IV Rocephin, will be discharged on 5 days of Ceftin.
Seen by physical therapy recommending rehab
Assessment/plan:
UTI - Failed outpatient therapy
She is not septic or toxic looking
Normal renal function
Added blood culture
Monitor temperature curve with ital signs and WBC
- IV ceftriaxone for now pending culture data.
- Supportive care including IVFs. Can stop IVF
- Added bladder scan protocol.
IBS-C
- Chronic constipation with 'diarrhea' episodes which likely reflect leakage around constipation.
- Bowel regimen including daily MiraLAX
- No abdominal pain. exam is normal abdomen.
Non-Gapped Metabolic Acidosis. Normal K
No persistent diarrhea although hx of episodes of diarrhea.
Improved
#Hypothyroidism
- Continue current T4 supplementation.
Normal T4 -TSH 0.15
Normocytic anemia
Hemoglobin stable
History of Severe Protein - Calorie Malnutrition
- Dietary evaluation as noted above.
Rheumatoid Arthritis
- No current complaints of joint pain.
- Continue methylprednisolone without changes.
Senile Dementia
Possible mild TME from UTI She is following commands , pleasant
DVT Prophylaxis: Subcut heparin
Code Status: DNR
Diet: Regular diet
Disposition: Discharge to rehab
Total time spent on today's encounter was 55 minutes which included time spent in counseling the patient/family regarding diagnosis and treatment plan as listed above, goals of care, and symptom management. Case was discussed with nursing staff,
specialists, and care coordinators/case management. All labs and imaging personally reviewed by me. Remainder the time spent in detailed review of previous records, lab data, imaging, and other medical provider documentation.
Anticipated Discharge: Today
Subjective/Interval History
-
Date of Service: July 02, 2025
Patient seen and examined at bedside, patient is pleasantly confused, denies chest pain or shortness of breath.
Objective Data
-
Vital Signs:
Vital Signs
Temp Pulse Resp BP Pulse Ox
98.3 F 73 18 125/68 94
07/02/25 12:27 07/02/25 12:27 07/02/25 12:27 07/02/25 12:27 07/02/25 12:27
I&O
07/01/25 07/02/25 07/03/25
06:59 06:59 06:59
Intake Total 1440 / 1440 840 / 840
Balance 1440 / 1440 840 / 840
Physical Exam
-
General: Cachectic
HEENT: Normocephalic, Atraumatic and No Ptosis
Respiratory: Rales and Non Labored Respirations
Cardiac: Regular Rhythm and S1/S2
Breast: Deferred by me
GI: Soft, Nontender, Nondistended and Normal Bowel Sounds
Genito-urinary: No Costovertebral Tender
Musculoskeletal: No Clubbing, No Cyanosis and No Edema
Skin: Warm
Neuro: Awake
Psych: Calm and Confused
--- NOTE | 2025-07-02 12:54 | W.DCSUMMARY ---
Discharge Summary
Discharge Data
Date of Admission: 06/29/25
Date of Discharge: 07/02/25
Total time spent discharging patient (in min): 40
-
Pending Results: No
Hospital Course
Hospital course
Patient is an 84y F with PMH significant for senile dementia, IBS and hypothyroidism who presents to ED for evaluation of urinary symptoms and confusion despite OP antibiotic treatment.
Culture remains negative, completed 3 days of IV Rocephin, will be discharged on 5 days of Ceftin.
Seen by physical therapy recommending rehab
During hospitalization patient was treated from the following
UTI - Failed outpatient therapy
She is not septic or toxic looking
Normal renal function
Added blood culture
Monitor temperature curve with ital signs and WBC
- IV ceftriaxone for now pending culture data.
- Supportive care including IVFs. Can stop IVF
- Added bladder scan protocol.
IBS-C
- Chronic constipation with 'diarrhea' episodes which likely reflect leakage around constipation.
- Bowel regimen including daily MiraLAX
- No abdominal pain. exam is normal abdomen.
Non-Gapped Metabolic Acidosis. Normal K
No persistent diarrhea although hx of episodes of diarrhea.
Improved
#Hypothyroidism
- Continue current T4 supplementation.
Normal T4 -TSH 0.15
Normocytic anemia
Hemoglobin stable
History of Severe Protein - Calorie Malnutrition
- Dietary evaluation as noted above.
Rheumatoid Arthritis
- No current complaints of joint pain.
- Continue methylprednisolone without changes.
Senile Dementia
Possible mild TME from UTI She is following commands , pleasant
DVT Prophylaxis: Subcut heparin
Code Status: DNR
Diet: Regular diet
Disposition: Discharge to rehab
Total time spent on today's encounter was 40 minutes which included time spent in counseling the patient/family regarding diagnosis and treatment plan as listed above, goals of care, and symptom management. Case was discussed with nursing staff,
specialists, and care coordinators/case management. All labs and imaging personally reviewed by me. Remainder the time spent in detailed review of previous records, lab data, imaging, and other medical provider documentation.
Anticipated Discharge: Today
Discharge Plan
-
Patient Disposition: Detention/SNF
Discharge Diagnosis/Procedures: UTI - Failed outpatient therapy
Condition: Good
Diet: As tolerated and Regular
Activity: With assistance and As tolerated
Other Services: PT and OT
Activity Restrictions/Additional Instructions:
Wound Care Instructions
L leg: clean with saline, Xeroform, abd and celina, change daily and prn drainage. moisturize legs with mineral oil daily
Follow up with Clinical Research Administrator.
Referrals:
UNKNOWN - PT DOES,NOT KNOW [Family Provider]
Prescriptions:
New
cefuroxime axetil 500 mg tablet
500 mg PO BID 5 Days Qty: 10 0RF
Continued
levothyroxine 50 MCG tablet
50 mcg PO DAILY@0600
polyvinyl alcohol [Artificial Tears (polyvin alc)] 1.4 % Drops
1 drp BOTH EYES BID@0900,1700
acetaminophen 500 mg Tablet
1,000 mg PO Q8HPRN PRN (Reason: mild pain)
magnesium hydroxide [Milk of Magnesia] 400 mg/5 mL Suspension
30 ml PO DAILYPRN PRN (Reason: if no bm x 2 days)
polyethylene glycol 3350 [Miralax] 17 gram powder in packet
17 g PO DAILYPRN PRN (Reason: constipation)
cetirizine 10 mg Tablet
10 mg PO DAILY
mineral oil-hydrophil petrolat Ointment
1 applic TOPICAL DAILY@0800
Rx Instructions:
apply to legs
ibuprofen 400 mg Tablet
400 mg PO Q6H PRN (Reason: mild pain)
Saccharomyces boulardii [Florastor] 250 mg Capsule
250 mg PO BID
cholecalciferol (vitamin D3) 50 mcg (2,000 unit) Tablet
50 mcg PO DAILY
methylprednisolone [Medrol] 4 mg tablet
2 mg PO DAILY
Discontinued
fluconazole 200 mg tablet
200 mg PO DAILY
Rx Instructions:
beginning 06/28/25 and ending 07/01/25
nitrofurantoin monohyd/m-cryst [Macrobid] 100 mg capsule
100 mg PO Q6H
Rx Instructions:
Beginning 06/27/25 and ending 07/02/25, give @0000,0600,1200,1700
Discharge Orders:
Discharge Patient (As Directed); Ordered 07/02/25
Ordered By: Ntahalia Koenig
Discharge Date and Time
Print Language: UKRAINIAN
== END 2025-07-02 12:45 | DRG 689 ==
LOC: 2 NORTH 21:45
PROVIDERS: Internal Medicine; Physician Assistant; ADMITTING PHYSICIAN Hospitalist; ATTENDING PHYSICIAN General Practice; EMERGENCY PHYSICIAN Emergency Medicine
DX: N30.20 Other chronic cystitis without hematuria (principal); G92.8 Other toxic encephalopathy; E87.20 Acidosis, unspecified; E46 Unspecified protein-calorie malnutrition; Z68.1 Body mass index [BMI] 19.9 or less, adult; Z87.440 Personal history of urinary (tract) infections; K58.1 Irritable bowel syndrome with constipation; E03.9 Hypothyroidism, unspecified; M06.9 Rheumatoid arthritis, unspecified; F03.90 Unspecified dementia, unspecified severity, without behavioral disturbance, psychotic disturbance, mood disturbance, and anxiety; Z66 Do not resuscitate; D64.9 Anemia, unspecified; Z11.52 Encounter for screening for COVID-19
CPT/HCPCS: 51798; 80048; 80053; 81003; 81015; 83605; 84439; 84443; 85025; 85027; 87040; 87070; 87086; 87811; 96374; 97167; 97535; 99284